=== PATIENT | female | born 1995 | race African-American/Black ===

== ENCOUNTER → 2017-06-09 09:24 | Outpatient (CLI) | payer OTHER ==
[~2017-06-09] VITALS: Ht 152.4 cm; Wt 65.8 kg
== END | disposition home or self-care (01) ==
LOC: PPHC 09:24
DX: Z00.00 Encounter for general adult medical examination without abnormal findings (principal)

== ENCOUNTER → 2017-06-09 | Outpatient (CLI) | payer OTHER | END | disposition home or self-care (01) | LOC: LAB 13:41 | DX: Z00.00 Encounter for general adult medical examination without abnormal findings (principal) ==

== ENCOUNTER → 2017-06-16 | Outpatient (CLI) | payer OTHER ==
[~2017-06-16] VITALS: Ht 152.4 cm; Wt 65.8 kg
== END | disposition home or self-care (01) ==
LOC: PPHC 11:37
DX: N64.4 Mastodynia (principal); Z01.89 Encounter for other specified special examinations

== ENCOUNTER → 2017-06-18 | Outpatient (CLI) | payer OTHER | END | disposition home or self-care (01) | LOC: MAMO-SONO 08:25 | DX: N64.81 Ptosis of breast (principal) ==

== ENCOUNTER → 2017-06-25 | Outpatient (CLI) | payer OTHER ==
[~2017-06-25] VITALS: Ht 152.4 cm; Wt 65.8 kg
== END | disposition home or self-care (01) ==
LOC: PPHC 07:30
DX: N64.89 Other specified disorders of breast (principal)

== ENCOUNTER 2017-11-10 13:31 | Outpatient (CLI) | payer OTHER | END 2017-11-10 13:38 | disposition home or self-care (01) | LOC: LAB 13:31 | DX: R23.3 Spontaneous ecchymoses (principal) ==